=== PATIENT | female | born 1950 | race Caucasian/White ===

== ENCOUNTER 2025-04-14 06:21 | Day surgery (SDC) | payer OTHER ==
[~2025-04-14] VITALS: Ht 162.6 cm; Wt 60.9 kg
[~2025-04-14 06:21] MED LIST: ACET-66 PO; ALBU18HF12 IH; ALEN70TA80 PO; AZEL137S8 NASAL; CYAN-53 PO; DICL100G60 TP; ERGO500093 PO; ESCI-8 PO; FAMO20 PO; FLUT1BLS7 IH; GLUC1AUT2 SQ; HUM100IN SQ; HYDR25TA PO; LISI10TA24 PO; MONT-40 PO; ONDA4 PO; PANT40TA54 PO; RINGERS SOLUTION,LACTATED 1,000 ML IV ONE; ROSU40TA88 PO; TOPI-97 PO; TRAZ-252 PO
[2025-04-14] MEDS ORDERED: SODIUM CHLORIDE 0.9% 1,000 ML ONE (07:15)
[2025-04-14] MEDS ORDERED: MIDAZOLAM HCL 2 MG/2 ML VIAL ONE (07:56)
[2025-04-14] MEDS ORDERED: FentaNYL CITRATE PF 100 MCG/2 ML VIAL ONE (07:56)
[2025-04-14] MEDS: SODIUM CHLORIDE 0.9% 1,000 ML IV ONE (08:10)
[2025-04-14 08:46] LABS: GLUCOMETER DEV NAME(LOC) SDS.; GLUCOSE,POINT OF CARE 136 MG/DL (70-110)
[2025-04-14 09:05] VITALS: PULSE 55; RESP 18; O2SAT 97
[2025-04-14] MEDS ORDERED: MethylPREDNISolone SOD SUCC 125 MG/2 ML VIAL ONE (09:44)
[2025-04-14] MEDS: MethylPREDNISolone SOD SUCC 125 MG/2 ML VIAL IVP ONE (09:48)
[2025-04-14] MEDS ORDERED: LIDOCAINE 4% 50 ML SOLUTION ONE (12:00)
[2025-04-14] MEDS ORDERED: ALBUTEROL SULFATE 2.5 MG/0.5 ML NEB SOLUTION NEB ONE (12:00)
[2025-04-14] MEDS ORDERED: BENZOCAINE 20% 50 MCG/SPRAY 57 GM ONE (12:00)
[2025-04-14] MEDS ORDERED: LIDOCAINE 2% 11 ML JELLY ONE (12:00)
== END 2025-04-14 15:33 | disposition home or self-care (01) ==
LOC: SURGERY 06:21
PROVIDERS: ATTEND Internal Medicine Critical Care Medicine
DX: R05.3 Chronic cough (principal); J38.4 Edema of larynx; B37.0 Candidal stomatitis; I10 Essential (primary) hypertension; E78.00 Pure hypercholesterolemia, unspecified; M19.90 Unspecified osteoarthritis, unspecified site
CPT/HCPCS: 31623; 82962; 87206; 87101; 87220; 87070; 88108; 31624; 94760; 71045; 87015; J3010; J2250; J2919; J7030; J7613; Z7610